=== PATIENT | male | born 1960 | race Caucasian/White ===

== ENCOUNTER 2017-04-11 08:11 | Emergency (ER) | payer OTHER ==
[2017-04-11] MEDS ORDERED: IPRATROPIUM/ALBUTEROL 3 ML DEYVIAL IH ONE (08:19)
[2017-04-11 08:24] VITALS: PULSE 85; RESP 18; TEMP 98
--- NOTE | 2017-04-11 08:24 | EDPHY ---
H & P Time Seen by Provider: 04/11/17 08:18 HPI/ROS: Chief Complaint: Cough, shortness of breath HPI: 57-year-old male whose had a week of upper respiratory symptoms including cough, congestion. Patient had symptoms earlier last week and seemed to improve during the end of the week. However last night his cough became worse. He has had some subjective chills at home. Has having coughing fits which is causing have a little bit of shortness of breath. No chest pain. No nausea or vomiting. No headache. No real body aches. No nausea vomiting or diarrhea. ROS: 10 point Review of Systems is negative except as noted in the HPI. PMH: Hyperlipidemia Social History: No smoking, occasional alcohol, no recreational drug use Family History: non-contributory Physical Exam: Gen: Awake, Alert, No Distress HEENT: Nose: no rhinorrhea Eyes: PERRLA, EOMI Mouth: Moist mucosa Neck: Supple, no JVD Chest: nontender, diffuse expiratory wheezing with inspiratory and expiratory crackles at the bilateral bases Heart: S1, S2 normal, no murmur Abd: Soft, non-tender, no guarding Back: no CVA tenderness, no midline tenderness Ext: no edema, non-tender Skin: no rash Neuro: CN II-XII intact, Sensation grossly intact, Strength 5/5 in bilateral upper and lower extremities Constitutional: Initial Vital Signs Temperature (C) 36.6 C 04/11/17 08:21 Heart Rate 85 04/11/17 08:21 Respiratory Rate 18 04/11/17 08:21 Blood Pressure 151/75 H 04/11/17 08:21 O2 Sat (%) 95 04/11/17 08:21 O2 Delivery Mode Room Air Allergies/Adverse Reactions: Penicillins Allergy (Intermediate, Verified 12/22/12 13:29) SOB Home Medications: Medication Instructions Recorded Lipitor 10 mg (RX) 12/22/12 Prilosec 12/22/12 Medical Decision Making - Diagnostics Imaging: Discussed imaging studies w/ call center support representative Radiologist, I viewed and interpreted images myself ED Course/Re-evaluation: Chest x-ray shows bronchitis. There is also a 5 mm nodule in right upper lung which will need follow-up as an outpatient with a noncontrast CT. Patient's significantly improved after a DuoNeb. Lungs are clear. Will send him home with an albuterol inhaler with a spacer. He is afebrile. Oxygen saturations are excellent. No indications for antibiotics at this time. He is not a smoker. He will follow up with primary care physician in 3-4 days, return for worsening. - Data Points Medications Given: Discontinued Medications Albuterol/Ipratropium (Duoneb) 3 ml IH EDNOW ONE Stop: 04/11/17 08:20 Last Admin: 04/11/17 08:31 Dose: 3 ml Departure - Departure Disposition: Home, Routine, Self-Care Clinical Impression: Acute bronchitis, Lung nodule Condition: Good Instructions: Acute Bronchitis (ED) Additional Instructions: Use the albuterol inhaler with a spacer, 2 puffs every 4 hr. Alternate acetaminophen (1000 mg) with ibuprofen (400 mg) every 4 hours as needed for fevers, chills, aches or pain. There is an incidental lung nodule in your right lung on your chest x-ray. This will need to be followed up with a noncontrast CT scan of your chest. Your primary care physician can order this. Follow up with primary care physician in 3-4 days for further evaluation. Return to the emergency depart for increasing shortness of breath, uncontrolled fevers or chills, nausea, vomiting, or any other concerns. Referrals: Lang Benson, DO [Primary Care Provider] - As per Instructions
[2017-04-11] MEDS ORDERED: ALBUTEROL INH PREPACK MDI TAKEHOME ONE (08:59)
[2017-04-11 09:16] VITALS: BP 144/62; O2SAT 96
== END 2017-04-11 09:15 | disposition home or self-care (01) ==
LOC: CED 08:11
DX: J20.9 Acute bronchitis, unspecified (principal); R91.1 Solitary pulmonary nodule
CPT/HCPCS: 71046-PO

== ENCOUNTER → 2017-06-03 | Outpatient (CLI) | payer OTHER | LOC: CIMAGING 07:39 | PROVIDERS: ATTEND Family Medicine | DX: R91.8 Other nonspecific abnormal finding of lung field (principal); I25.10 Atherosclerotic heart disease of native coronary artery without angina pectoris | CPT/HCPCS: 71250-PO ==